=== PATIENT | male | born 1955 | race Caucasian/White ===

== ENCOUNTER 2017-10-01 11:37 | Day surgery (SDC) | payer BC, OTHER ==
[2017-09-30 09:17] VITALS: BP 147/91
[~2017-10-01] VITALS: Ht 182.9 cm; Wt 94.2 kg
[~2017-10-01 11:37] MED LIST: BACL-19 PO; DEXL60CA2 PO; RANI300T PO
[2017-10-01] MEDS ORDERED: LACTATED RINGERS 1,000 ML IV SCH (11:59)
[2017-10-01] MEDS ORDERED: INDOCYANINE GREEN 25 MG VIAL ONE (12:36)
[2017-10-01] MEDS ORDERED: FENTANYL PF 250 MCG/5ML ONE (12:51)
[2017-10-01] MEDS ORDERED: MIDAZOLAM 1 MG/ML, 2ML ONE (12:51)
[2017-10-01] MEDS ORDERED: EPINEPHRINE 1 MG/ML, 1ML ONE (13:11)
[2017-10-01] MEDS ORDERED: BUPIVACAINE/PF 0.5% ONE (13:11)
[2017-10-01] MEDS ORDERED: PROPOFOL 10 MG/ML, 20ML ONE (13:26)
[2017-10-01] MEDS ORDERED: SUCCINYLCHOLINE 20 MG/ML, 10ML ONE (13:26)
[2017-10-01] MEDS ORDERED: ONDANSETRON 2MG/ML, 2ML ONE (13:26)
[2017-10-01] MEDS ORDERED: LIDOCAINE 2% 100MG/5ML SYRINGE ONE (13:26)
[2017-10-01] MEDS ORDERED: ROCURONIUM 10MG/ML,5ML ONE (13:26)
[2017-10-01] MEDS ORDERED: CEFAZOLIN 1,000 MG ONE (13:26)
[2017-10-01] MEDS ORDERED: GLYCOPYRROLATE 0.2MG/1ML, 5ML ONE (13:26)
[2017-10-01] MEDS ORDERED: NEOSTIGMINE 1 MG/ML, 10ML ONE (13:26)
[2017-10-01] MEDS ORDERED: DEXAMETHASONE 4 MG/ML, 1ML ONE (13:26)
[2017-10-01] MEDS ORDERED: OXYcodone 5 MG/5 ML ORAL.SOL UDC PO PRN (14:00)
[2017-10-01] MEDS ORDERED: PROMETHAZINE 12.5 MG SUPP PR PRN (14:00)
[2017-10-01] MEDS ORDERED: ONDANSETRON 2MG/ML, 2ML IVPush PRN (14:00)
[2017-10-01] MEDS ORDERED: PROMETHAZINE 25 MG/ML, 1ML IV PRN (14:00)
[2017-10-01] MEDS ORDERED: hydrALAzine 20 MG/ML, 1ML IV PRN (14:00)
[2017-10-01] MEDS ORDERED: HYDROcodone/APAP 7.5-325MG/15ML UDC PO PRN (14:00)
[2017-10-01] MEDS ORDERED: HYDROmorphone 1 MG/ML, 1ML IV PRN (14:00)
[2017-10-01] MEDS ORDERED: ACETAMINOPHEN 325 MG TABLET PO PRN (14:00)
[2017-10-01] MEDS ORDERED: FENTANYL PF 100 MCG/2ML ONE ×2 (14:09→15:07)
[2017-10-01] MEDS: LABETALOL 5MG/ML, 20ML IV PRN ×3 (14:30→14:50)
[2017-10-01] MEDS ORDERED: LABETALOL 5MG/ML, 20ML ONE (14:36)
[2017-10-01] MEDS ORDERED: hydrALAzine 20 MG/ML, 1ML ONE (14:54)
[2017-10-01] MEDS ORDERED: ACETAMINOPHEN 650 MG/20.3 ML UDC ONE (15:07)
[2017-10-01] MEDS ORDERED: OXYcodone 5 MG/5 ML ORAL.SOL UDC ONE ×2 (15:07→15:15)
[2017-10-01] MEDS: FENTANYL PF 100 MCG/2ML IV PRN ×2 (15:09→15:19)
[2017-10-01] MEDS ORDERED: LORazepam 2 MG/ML, 1ML ONE (15:57)
[2017-10-01] MEDS ORDERED: LORazepam 2 MG/ML, 1ML IVPush PRN (16:30)
== END 2017-10-01 17:40 | disposition home or self-care (01) ==
LOC: OUT 11:37
PROVIDERS: ATTEND Surgery
DX: K80.10 Calculus of gallbladder with chronic cholecystitis without obstruction (principal); K21.9 Gastro-esophageal reflux disease without esophagitis; Z98.890 Other specified postprocedural states
CPT/HCPCS: 47562; 88304; 93005; C1760; J0171; J0330; J0360; J0690; J1100; J2250; J2405; J2704; J2710; J3010; J3490; J7120